=== PATIENT | female | born 1965 | race Caucasian/White ===

== ENCOUNTER 2017-09-24 06:36 | Day surgery (SDC) | payer BC ==
[~2017-09-24] VITALS: Ht 175.3 cm; Wt 95.7 kg
[2017-09-24 07:35] LABS: HCG,QUAL RESULT NEGATIVE (NEGATIVE)
[2017-09-24] MEDS ORDERED: SIMETHICONE 40 MG/0.6 ML ML ONE (08:11)
[2017-09-24] MEDS ORDERED: MEPERIDINE HCL/PF 100 MG/ML AMP ONE (08:11)
[2017-09-24] MEDS ORDERED: MIDAZOLAM HCL 5 MG/5 ML VIAL ONE (08:12)
[2017-09-24] MEDS ORDERED: GLYCOPYRROLATE 0.2 MG/ML VIAL ONE (08:12)
[2017-09-24 16:40] VITALS: BP_SYST 105
== END 2017-09-24 11:10 | disposition home or self-care (01) ==
LOC: SDS 06:36 → SMU 06:56 → SDS 11:10
PROVIDERS: ATTEND Colon & Rectal Surgery
DX: Z12.11 Encounter for screening for malignant neoplasm of colon (principal); K63.5 Polyp of colon; K57.30 Diverticulosis of large intestine without perforation or abscess without bleeding; Z68.32 Body mass index [BMI] 32.0-32.9, adult; Z85.820 Personal history of malignant melanoma of skin; Z90.49 Acquired absence of other specified parts of digestive tract; Z98.890 Other specified postprocedural states; Z80.3 Family history of malignant neoplasm of breast; Z82.49 Family history of ischemic heart disease and other diseases of the circulatory system; M54.5 Low back pain
CPT/HCPCS: 45380; 84703; 88305; J2175; J2250; J7030; J3490